=== PATIENT | female | born 1990 | race African-American/Black ===

== ENCOUNTER 2021-05-10 13:17 | Emergency (ER) | payer OTHER ==
[~2021-05-10] VITALS: Ht 165.1 cm; Wt 83.0 kg
[2021-05-10] MEDS ORDERED: IBUPROFEN 600MG TABLET PO ONE (15:30)
[2021-05-10] MEDS ORDERED: IBUP-2029 MT (16:46)
[2021-05-10] MEDS ORDERED: CYCL10TA7 MT (16:46)
[2021-05-10 16:58] VITALS: BP 135/73
== END 2021-05-10 16:59 | disposition home or self-care (01) ==
LOC: ER 13:17
DX: R07.89 Other chest pain (principal); M25.511 Pain in right shoulder; M25.512 Pain in left shoulder; M79.18 Myalgia, other site; V49.49XA Driver injured in collision with other motor vehicles in traffic accident, initial encounter; Y93.89 Activity, other specified; Y92.89 Other specified places as the place of occurrence of the external cause; Y99.8 Other external cause status; Z79.899 Other long term (current) drug therapy; Z98.890 Other specified postprocedural states
CPT/HCPCS: 71046; 99283

== ENCOUNTER 2021-05-16 18:36 | Emergency (ER) | payer OTHER ==
[~2021-05-16] VITALS: Ht 165.1 cm; Wt 80.9 kg
[~2021-05-16 18:36] MED LIST: CYCL10TA7 MT; IBUP-2029 MT
[2021-05-16 19:04] VITALS: BP 164/103
[2021-05-16] MEDS ORDERED: HYDR-4001 MT ×2 (20:19)
== END 2021-05-16 20:25 | disposition home or self-care (01) ==
LOC: ER 18:36
DX: S39.012A Strain of muscle, fascia and tendon of lower back, initial encounter (principal); V49.49XA Driver injured in collision with other motor vehicles in traffic accident, initial encounter; Y93.89 Activity, other specified; Y92.488 Other paved roadways as the place of occurrence of the external cause
CPT/HCPCS: 99283

== ENCOUNTER 2021-05-25 16:43 | Emergency (ER) | payer OTHER ==
[~2021-05-25] VITALS: Ht 165.1 cm; Wt 81.0 kg
[~2021-05-25 16:43] MED LIST changes: +HYDR-4001 MT
[2021-05-25] MEDS ORDERED: HYDROCODONE/ACETAMINOPHEN 5/325MG TABLET PO ONE (23:00)
[2021-05-25] MEDS ORDERED: IBUP-2029 MT (23:18)
[2021-05-25] MEDS ORDERED: HYDR-4001 MT (23:18)
[2021-05-26 00:17] VITALS: BP 128/83
== END 2021-05-26 00:18 | disposition home or self-care (01) ==
LOC: ER 16:43
DX: S09.8XXA Other specified injuries of head, initial encounter (principal); S16.1XXA Strain of muscle, fascia and tendon at neck level, initial encounter; S39.012A Strain of muscle, fascia and tendon of lower back, initial encounter; S20.219A Contusion of unspecified front wall of thorax, initial encounter; Z98.890 Other specified postprocedural states; Z91.018 Allergy to other foods; V43.52XA Car driver injured in collision with other type car in traffic accident, initial encounter; Y93.89 Activity, other specified; Y92.488 Other paved roadways as the place of occurrence of the external cause
CPT/HCPCS: 71045; 72100; 81025; 99284